=== PATIENT | female | born 1995 | race Hispanic/Latino ===

== ENCOUNTER 2017-06-18 08:46 | Observation (INO) | payer MEDICAID ==
[~2017-06-18] VITALS: Ht 167.6 cm; Wt 117.0 kg
[2017-06-18 09:11] VITALS: BP 120/75
[2017-06-18] MEDS: DEXAMETHASONE SOD PHOSPHATE 4 MG/ML 1ML VIAL IM SCH ×3 (09:42→20:47)
[2017-06-18] MEDS ORDERED: SERT50TA12 PO (09:46)
[2017-06-18] MEDS ORDERED: PNV1COMB11 PO (09:46)
[2017-06-18] MEDS ORDERED: ACET-2743 PO (09:46)
[2017-06-18 11:47] VITALS: BP 120/70
[2017-06-18] MEDS ORDERED: ACETAMINOPHEN 325 MG TAB PO PRN (15:45)
[2017-06-18 15:46] VITALS: BP 115/70
[2017-06-18 19:24] VITALS: BP 109/56
[2017-06-18 23:45] VITALS: BP 99/56
[2017-06-19 02:36] VITALS: BP 106/61
[2017-06-19] MEDS ORDERED: DEXAMETHASONE SOD PHOSPHATE 4 MG/ML 1ML VIAL ONE (03:04)
[2017-06-19] MEDS: DEXAMETHASONE SOD PHOSPHATE 4 MG/ML 1ML VIAL IM SCH (03:08)
[2017-06-19 07:48] VITALS: BP 116/66
== END 2017-06-19 09:50 | disposition home or self-care (01) ==
LOC: WSH 08:46
DX: O99.89 Other specified diseases and conditions complicating pregnancy, childbirth and the puerperium (principal); M54.9 Dorsalgia, unspecified; G89.29 Other chronic pain; Z3A.35 35 weeks gestation of pregnancy
CPT/HCPCS: 96372 ×2; G0378 ×26; J1100 ×4

== ENCOUNTER 2017-06-18 10:30 | Inpatient (IN) | payer MEDICAID ==
[~2017-06-18 10:30] MED LIST: ACET-2743 PO; PNV1COMB11 PO; SERT50TA12 PO
[2017-06-23] MEDS ORDERED: CALDOLOR 800MG+NS 250ML 250 ML IV PRN (07:30)
[2017-06-23] MEDS ORDERED: LACTATED RINGERS 1000ML 1,000 ML IV SCH (07:30)
[2017-06-23] MEDS ORDERED: CEFAZOLIN SODIUM 1 GM VIAL IVP PRN (07:30)
[2017-06-23 07:47] LABS: HEMATOCRIT 34.3 % (36-48); MEAN CORPUSCULAR HEMOGLOBIN 28.9 pg (27.0-33.0); MEAN CORPUSCULAR HGB CONC 34.5 g/dL (32.0-36.0); MEAN CORPUSCULAR VOLUME 83.7 fL (79-99); PLATELET COUNT (AUTO) 164 K/uL (130-400); RED CELL DISTRIBUTION WIDTH 13.5 % (11.0-15.5); WHITE BLOOD COUNT (AUTO) 8.9 K/uL (4.8-10.8)
[2017-06-23] MEDS ORDERED: OXYTOCIN 10 USP UNITS/ML ONE ×4 (09:27→21:25)
[2017-06-23] MEDS ORDERED: DURAMORPH PF1 MG/ML 10ML AMP IV ONE (11:34)
[2017-06-23] MEDS ORDERED: FENTANYL CITRATE PF 50 MCG/1 ML 2ML VIAL ONE (11:34)
[2017-06-23] MEDS ORDERED: CEFAZOLIN SODIUM 1 GM VIAL IVP ONE (11:45)
[2017-06-23] MEDS ORDERED: PHENYLEPHRINE HCL 10 MG/ML 1ML VIAL IV ONE (12:57)
[2017-06-23] MEDS ORDERED: ONDANSETRON HCL 4 MG/2 ML VIAL ONE (12:57)
[2017-06-23] MEDS ORDERED: OXYTOCIN-LR 20 UNITS/1000 ML 1,000 ML IV PRN (13:17)
[2017-06-23] MEDS ORDERED: DEXTROSE 5 %-0.45 % NACL 1,000 ML IV PRN (13:30)
[2017-06-23 14:45] VITALS: BP 113/71
[2017-06-23] MEDS ORDERED: EPHEDRINE SULFATE 50 MG/ML AMPULE IVP PRN (14:45)
[2017-06-23] MEDS ORDERED: PROMETHAZINE HCL 25 MG/ML 1ML AMPULE IM PRN (14:45)
[2017-06-23] MEDS ORDERED: ONDANSETRON HCL 4 MG/2 ML VIAL IVP PRN ×2 (14:45)
[2017-06-23] MEDS ORDERED: MORPHINE SULFATE 2 MG/ML 1ML SYG IVP PRN (14:45)
[2017-06-23] MEDS ORDERED: ONDANSETRON HCL 4 MG/2 ML 8 MG in SODIUM CHLORIDE 0.9% 50 ML IVP NR (14:45)
[2017-06-23] MEDS ORDERED: NALOXONE HCL 0.4 MG/1 ML ML IVP PRN ×2 (14:45)
[2017-06-23] MEDS ORDERED: DiphenhydrAMINE HCL 50 MG/ML VIAL IVP PRN (14:45)
[2017-06-23] MEDS ORDERED: HYDROCODONE/ACETAMINOPHEN 5/325 MG TAB PO PRN (14:45)
[2017-06-23] MEDS ORDERED: METOCLOPRAMIDE 10 MG/2 ML VIAL IVP PRN (14:45)
[2017-06-23] MEDS: HYDROCODONE/ACETAMINOPHEN 5/325 MG TAB PO PRN ×2 (15:45→21:11)
[2017-06-23 16:08] VITALS: BP 130/78
[2017-06-23 19:51] VITALS: BP 120/71
[2017-06-23] MEDS ORDERED: SODIUM CHLORIDE 0.9% 10 ML VIAL ONE (20:15)
[2017-06-23] MEDS ORDERED: CEFAZOLIN 2GM / 50 ML 50 ML IV SCH (20:30)
[2017-06-23] MEDS: CEFAZOLIN SODIUM 1 GM VIAL IVP SCH (20:59)
[2017-06-23] MEDS: SERTRALINE HCL 50 MG TABLET PO SCH (21:10)
[2017-06-23] MEDS: CALDOLOR 800MG+NS 250ML 250 ML IV SCH (21:32)
[2017-06-23 23:02] VITALS: BP 98/49
[2017-06-24 02:57] VITALS: BP 94/56
[2017-06-24] MEDS ORDERED: SODIUM CHLORIDE 0.9% 10 ML VIAL ONE (03:54)
[2017-06-24] MEDS: CEFAZOLIN SODIUM 1 GM VIAL IVP SCH (04:15)
[2017-06-24] MEDS: CALDOLOR 800MG+NS 250ML 250 ML IV SCH (05:24)
[2017-06-24 06:43] LABS: HEMATOCRIT 30.2 % (36-48); MEAN CORPUSCULAR HEMOGLOBIN 29.4 pg (27.0-33.0); MEAN CORPUSCULAR HGB CONC 34.4 g/dL (32.0-36.0); MEAN CORPUSCULAR VOLUME 85.3 fL (79-99); NUCLEATED RED BLOOD CELLS 0.1 % (0.0-0.19); PLATELET COUNT (AUTO) 124 K/uL (130-400); RED BLOOD CELL COUNT(AUTO) 3.54 MIL/uL (4.00-5.50); RED CELL DISTRIBUTION WIDTH 13.2 % (11.0-15.5); WHITE BLOOD COUNT (AUTO) 9.4 K/uL (4.8-10.8)
[2017-06-24 07:30] LABS: HEPATITIS Bs ANTIGEN SCREEN P Negative (Negative)
[2017-06-24 08:07] VITALS: BP 91/56
[2017-06-24] MEDS: SERTRALINE HCL 50 MG TABLET PO SCH ×2 (09:09→22:15)
[2017-06-24 12:07] VITALS: BP 109/70
[2017-06-24] MEDS: ACETAMINOPHEN-CODEINE 300/30MG TAB PO PRN ×2 (12:13→18:27)
[2017-06-24] MEDS: SIMETHICONE 80 MG TAB.CHEW PO PRN ×3 (13:23→21:34)
[2017-06-24] MEDS: IBUPROFEN 800 MG TAB PO SCH ×2 (13:25→21:36)
[2017-06-24] MEDS ORDERED: LANOLIN 30GM OINTMENT TP PRN (13:30)
[2017-06-24 15:44] VITALS: BP 91/54
[2017-06-24 19:55] VITALS: BP 101/51
[2017-06-24] MEDS: DOCUSATE SODIUM 100 MG CAP PO SCH (21:34)
[2017-06-24 23:13] VITALS: BP 115/57
[2017-06-25 02:52] VITALS: BP 101/58
[2017-06-25] MEDS: IBUPROFEN 800 MG TAB PO SCH (05:24)
[2017-06-25 08:02] VITALS: BP 104/52
[2017-06-25] MEDS: SIMETHICONE 80 MG TAB.CHEW PO PRN (09:18)
[2017-06-25] MEDS: SERTRALINE HCL 50 MG TABLET PO SCH (09:18)
[2017-06-25] MEDS: DOCUSATE SODIUM 100 MG CAP PO SCH (09:18)
== END 2017-06-25 10:35 | disposition home or self-care (01) | DRG 540 ==
LOC: LDH 06-23 07:02 → WSH 06-23 14:45
PROC: 10D00Z1 Extraction of Products of Conception, Low, Open Approach (ICD-10-PCS; principal; 2017-06-23 10:00)
DX: O69.81X0 Labor and delivery complicated by cord around neck, without compression, not applicable or unspecified (principal); G61.0 Guillain-Barre syndrome; Z37.0 Single live birth; Z3A.36 36 weeks gestation of pregnancy
CPT/HCPCS: 36415; 59510; 85027; 86592; 86850; 86900; 86901; 87340; A4218; A4344; A4606; J0690; J1741; J2274; J2370; J2405; J2590; J3010; J7120

== ENCOUNTER 2017-08-03 07:36 | Emergency (ER) | payer MEDICAID ==
[2017-08-03] MEDS ORDERED: LIDOCAINE HCL 2% VISCOUS 15 ML UDCUP ONE (07:55)
[2017-08-03] MEDS ORDERED: KETOROLAC TROMETHAMINE 30MG/ML ONE (07:56)
[2017-08-03] MEDS ORDERED: SODIUM CHLORIDE 0.9% 500ML 500 ML IV ONE (07:56)
[2017-08-03] MEDS ORDERED: PROCHLORPERAZINE EDISYLATE 10 MG/2 ML VIAL ONE (07:56)
[2017-08-03] MEDS ORDERED: MAG HYDROX/AL HYDROX/SIMETH ES 30 ML SUSP UDCUP ONE (07:56)
[2017-08-03 08:08] LABS: BASOPHILS % (AUTO) 0.4 % (0.0-5.0); EOSINOPHILS % (AUTO) 2.1 % (0.0-8.0); HEMATOCRIT 35.6 % (36-48); LYMPHOCYTES % (AUTO) 36.9 % (21.0-51.0); MEAN CORPUSCULAR HEMOGLOBIN 28.7 pg (27.0-33.0); MEAN CORPUSCULAR HGB CONC 34.3 g/dL (32.0-36.0); MEAN CORPUSCULAR VOLUME 83.7 fL (80-100); MONOCYTES % (AUTO) 8.2 % (3.0-13.0); NEUTROPHILS % (AUTO) 52.4 % (40.0-77.0); PLATELET COUNT (AUTO) 187 K/uL (130-400); RED BLOOD CELL COUNT(AUTO) 4.25 MIL/uL (4.00-5.50); RED CELL DISTRIBUTION WIDTH 13.3 % (11.0-15.5); WHITE BLOOD COUNT (AUTO) 9.2 K/uL (4.8-10.8)
[2017-08-03 08:19] LABS: CREATININE 0.8 mg/dL (0.5-1.5); POTASSIUM 3.8 mmol/L (3.5-5.1)
[2017-08-03 08:27] LABS: ALBUMIN 3.4 g/dL (3.5-5.0); BILIRUBIN,DIRECT 0.1 mg/dL (0.0-0.3); BILIRUBIN,TOTAL 0.3 mg/dL (0.2-1.0); TOTAL PROTEIN, SERUM 6.6 g/dL (6.0-8.3)
[2017-08-03 08:34] LABS: INR 0.97 (0.85-1.15); PARTIAL THROMBOPLASTIN TIME 26.8 SEC (26.3-35.5); PROTHROMBIN TIME 10.2 SEC (9.6-11.6)
[2017-08-03 08:41] LABS: B-TYPE NATRIURETIC PEPTIDE < 5 pg/mL (0-100)
[2017-08-03 09:59] LABS: APPEARANCE,URINE Clear (CLEAR); BILIRUBIN,URINE Negative (NEGATIVE); COLOR,URINE Yellow (YELLOW); GLUCOSE, URINE (UA) Negative (NEGATIVE); KETONES,URINE Negative (NEGATIVE); LEUKOCYTE ESTERASE ,URINE Trace (NEGATIVE); NITRATE,URINE Negative (NEGATIVE); OCCULT BLOOD,URINE Moderate (NEGATIVE); PROTEIN,URINE Negative (NEGATIVE); UROBILINOGEN,URINE 0.2 mg/dL (0.2-1.0)
[2017-08-03 10:01] LABS: AMPHET/METH SCREEN,URINE NEGATIVE (NEGATIVE); BARBITURATE SCREEN, URINE NEGATIVE (NEGATIVE); BENZODIAZEPINES SCREEN,URINE NEGATIVE (NEGATIVE); CANNABINOID SCREEN,URINE NEGATIVE (NEGATIVE); COCAINE SCREEN,URINE NEGATIVE (NEGATIVE); OPIATE SCREEN,URINE NEGATIVE (NEGATIVE); PHENCYCLIDINE SCREEN,URINE NEGATIVE (NEGATIVE)
[2017-08-03 10:15] LABS: BACTERIA,URINE None Seen /HPF (None Seen); MUCUS,URINE Moderate LPF (None Seen); WBC,URINE 0-1 /HPF (0-1)
== END 2017-08-03 11:55 | disposition home or self-care (01) ==
LOC: EDH 07:36
DX: K80.50 Calculus of bile duct without cholangitis or cholecystitis without obstruction (principal); R10.13 Epigastric pain; J45.909 Unspecified asthma, uncomplicated; K21.9 Gastro-esophageal reflux disease without esophagitis; Z91.040 Latex allergy status; Z98.890 Other specified postprocedural states
CPT/HCPCS: 36415; 74021; 76705; 80048; 80076; 80305; 81001; 82550; 83690; 83880; 84484; 84703; 85025; 85378; 85610; 85730; 93005; 96361; 96374; 96375; 99285; J0780; J1885; J7040

== ENCOUNTER 2017-09-01 10:23 | Inpatient (IN) | payer MEDICAID, OTHER ==
[~2017-09-01] VITALS: Ht 167.6 cm; Wt 112.3 kg
[2017-09-01 10:50] LABS: BASOPHILS % (AUTO) 0.4 % (0.0-5.0); EOSINOPHILS % (AUTO) 1.6 % (0.0-8.0); HEMATOCRIT 37.4 % (36-48); MEAN CORPUSCULAR HEMOGLOBIN 28.3 pg (27.0-33.0); MEAN CORPUSCULAR HGB CONC 34.1 g/dL (32.0-36.0); MEAN CORPUSCULAR VOLUME 83.1 fL (79-99); MONOCYTES % (AUTO) 7.5 % (3.0-13.0); NEUTROPHILS % (AUTO) 57.5 % (40.0-77.0); PLATELET COUNT (AUTO) 231 K/uL (130-400); RED BLOOD CELL COUNT(AUTO) 4.51 MIL/uL (4.00-5.50); RED CELL DISTRIBUTION WIDTH 13.6 % (11.0-15.5); WHITE BLOOD COUNT (AUTO) 10.4 K/uL (4.8-10.8)
[2017-09-01 10:52] LABS: APPEARANCE,URINE Clear (CLEAR); BILIRUBIN,URINE Negative (NEGATIVE); COLOR,URINE Yellow (YELLOW); GLUCOSE, URINE (UA) Negative (NEGATIVE); KETONES,URINE Negative (NEGATIVE); LEUKOCYTE ESTERASE ,URINE Trace (NEGATIVE); NITRATE,URINE Negative (NEGATIVE); OCCULT BLOOD,URINE Small (NEGATIVE); PH,URINE 5.5 (5.0-8.0); PROTEIN,URINE Negative (NEGATIVE); UROBILINOGEN,URINE 0.2 mg/dL (0.2-1.0)
[2017-09-01 11:01] LABS: CREATININE 0.7 mg/dL (0.5-1.5)
[2017-09-01 11:06] LABS: ALBUMIN 3.7 g/dL (3.5-5.0); BILIRUBIN,TOTAL 0.5 mg/dL (0.2-1.0); TOTAL PROTEIN, SERUM 7.2 g/dL (6.0-8.3)
[2017-09-01] MEDS ORDERED: ONDANSETRON ODT 4 MG TAB ONE (11:14)
[2017-09-01 11:26] LABS: BACTERIA,URINE Rare /HPF (None Seen); RBC,URINE 0-1 /HPF (0-1)
[2017-09-01 11:27] LABS: SQUAMOUS EPITHELIAL CELL,UR Rare /LPF (0-2)
[2017-09-01] MEDS ORDERED: KETOROLAC TROMETHAMINE 30MG/ML ONE (11:41)
[2017-09-01 16:11] VITALS: BP 111/70
[2017-09-01] MEDS ORDERED: ONDANSETRON HCL 4 MG/2 ML VIAL IVP PRN (16:15)
[2017-09-01] MEDS ORDERED: ZOSYN 3.375GM+NS 50ML 50 ML IV SCH (17:00)
[2017-09-01] MEDS: LACTATED RINGERS 1000ML 1,000 ML IV SCH (17:58)
[2017-09-01] MEDS: MEROPENEM 1 GM VIAL IVP SCH (17:58)
[2017-09-01 19:31] VITALS: BP 104/63
[2017-09-01 23:13] VITALS: BP 95/62
[2017-09-02] MEDS: LACTATED RINGERS 1000ML 1,000 ML IV SCH ×3 (03:31→23:45)
[2017-09-02 03:34] VITALS: BP 106/62
[2017-09-02] MEDS: MEROPENEM 1 GM VIAL IVP SCH ×3 (05:19→18:44)
[2017-09-02 05:22] LABS: HEMATOCRIT 35.9 % (36-48); MEAN CORPUSCULAR HEMOGLOBIN 29.6 pg (27.0-33.0); MEAN CORPUSCULAR HGB CONC 35.4 g/dL (32.0-36.0); MEAN CORPUSCULAR VOLUME 83.8 fL (79-99); NUCLEATED RED BLOOD CELLS 0.1 % (0.0-0.19); PLATELET COUNT (AUTO) 204 K/uL (130-400); RED BLOOD CELL COUNT(AUTO) 4.28 MIL/uL (4.00-5.50); RED CELL DISTRIBUTION WIDTH 13.7 % (11.0-15.5); WHITE BLOOD COUNT (AUTO) 8.1 K/uL (4.8-10.8)
[2017-09-02 05:45] LABS: ALBUMIN 3.2 g/dL (3.5-5.0); BILIRUBIN,TOTAL 0.8 mg/dL (0.2-1.0); CREATININE 0.7 mg/dL (0.5-1.5); POTASSIUM 3.9 mmol/L (3.5-5.1); TOTAL PROTEIN, SERUM 6.2 g/dL (6.0-8.3)
[2017-09-02] MEDS ORDERED: HYDROCODONE/ACETAMINOPHEN 5/325 MG TAB PO PRN (06:00)
[2017-09-02 07:25] VITALS: BP 100/55
[2017-09-02 11:37] VITALS: BP 101/58
[2017-09-02 11:49] LABS: BASOPHILS % (AUTO) 0.3 % (0.0-5.0); EOSINOPHILS % (AUTO) 1.8 % (0.0-8.0); LYMPHOCYTES % (AUTO) 33.8 % (21.0-51.0); MEAN CORPUSCULAR HEMOGLOBIN 29.4 pg (27.0-33.0); MEAN CORPUSCULAR HGB CONC 35.1 g/dL (32.0-36.0); MEAN CORPUSCULAR VOLUME 83.7 fL (79-99); MONOCYTES % (AUTO) 7.5 % (3.0-13.0); NEUTROPHILS % (AUTO) 56.6 % (40.0-77.0); PLATELET COUNT (AUTO) 199 K/uL (130-400); RED BLOOD CELL COUNT(AUTO) 4.17 MIL/uL (4.00-5.50); RED CELL DISTRIBUTION WIDTH 13.7 % (11.0-15.5); WHITE BLOOD COUNT (AUTO) 7.4 K/uL (4.8-10.8)
[2017-09-02 15:27] VITALS: BP 101/65
[2017-09-02] MEDS ORDERED: ENOXAPARIN SODIUM 40 MG/0.4 ML SYRINGE SQ SCH (16:00)
[2017-09-02 19:50] VITALS: BP 106/61
[2017-09-02 23:34] VITALS: BP 103/61
[2017-09-03] VITALS (22 sets, daily range): BP systolic 97–120; BP diastolic 55–68
[2017-09-03] MEDS: MORPHINE SULFATE 2 MG/ML 1ML SYG IVP PRN ×2 (00:24→09:57)
[2017-09-03] MEDS: MEROPENEM 1 GM VIAL IVP SCH ×3 (03:01→19:12)
[2017-09-03 05:21] LABS: HEMATOCRIT 37.4 % (36-48); MEAN CORPUSCULAR HEMOGLOBIN 28.5 pg (27.0-33.0); MEAN CORPUSCULAR VOLUME 83.8 fL (79-99); PLATELET COUNT (AUTO) 222 K/uL (130-400); RED BLOOD CELL COUNT(AUTO) 4.46 MIL/uL (4.00-5.50); RED CELL DISTRIBUTION WIDTH 13.8 % (11.0-15.5); WHITE BLOOD COUNT (AUTO) 6.8 K/uL (4.8-10.8)
[2017-09-03 05:30] LABS: ALBUMIN 3.3 g/dL (3.5-5.0); BILIRUBIN,TOTAL 0.8 mg/dL (0.2-1.0); CREATININE 0.7 mg/dL (0.5-1.5); POTASSIUM 3.5 mmol/L (3.5-5.1); TOTAL PROTEIN, SERUM 6.7 g/dL (6.0-8.3)
[2017-09-03] MEDS ORDERED: PROPOFOL 10 MG/ML 20ML VIAL IV ONE (08:00)
[2017-09-03] MEDS ORDERED: MIDAZOLAM HCL 1 MG/ML 2ML VIAL ONE (08:01)
[2017-09-03] MEDS ORDERED: ISOVUE-M 200 20 ML VIAL IT ONE (08:01)
[2017-09-03] MEDS ORDERED: ISOVUE-370 50ML VIAL IV ONE (08:01)
[2017-09-03] MEDS ORDERED: FENTANYL CITRATE PF 50 MCG/1 ML 2ML VIAL ONE ×3 (08:01→09:11)
[2017-09-03] MEDS ORDERED: BUPIVACAINE/PF 0.5% 30ML VIAL ONE (08:04)
[2017-09-03] MEDS ORDERED: GLYCOPYRROLATE 0.2 MG/ML 5 ML VIAL ONE (08:17)
[2017-09-03] MEDS ORDERED: ONDANSETRON HCL 4 MG/2 ML VIAL ONE (08:17)
[2017-09-03] MEDS ORDERED: DEXAMETHASONE SOD PHOSPHATE 10MG/ML 1ML VIAL ONE (08:17)
[2017-09-03] MEDS ORDERED: DiphenhydrAMINE HCL 50 MG/ML VIAL ONE (08:17)
[2017-09-03] MEDS ORDERED: LIDOCAINE PF 2% 5ML ABBOJECT ONE (08:18)
[2017-09-03] MEDS ORDERED: EPHEDRINE SULFATE 50 MG/ML AMPULE ONE (08:22)
[2017-09-03] MEDS ORDERED: SODIUM CHLORIDE 0.9% 10 ML VIAL ONE (09:21)
[2017-09-03] MEDS ORDERED: MEPERIDINE-PF 25 MG/ML SYG ONE (09:34)
[2017-09-03] MEDS ORDERED: KETOROLAC TROMETHAMINE 30MG/ML ONE (09:34)
[2017-09-03] MEDS: ENOXAPARIN SODIUM 40 MG/0.4 ML SYRINGE SQ SCH (10:52)
[2017-09-03] MEDS: ACETAMINOPHEN-CODEINE 300/30MG TAB PO PRN ×2 (11:13→23:53)
[2017-09-03] MEDS ORDERED: ACETAMINOPHEN-CODEINE 300/30MG TAB PO PRN (11:15)
[2017-09-03] MEDS: LACTATED RINGERS 1000ML 1,000 ML IV SCH (14:23)
[2017-09-04] MEDS: LACTATED RINGERS 1000ML 1,000 ML IV SCH (00:25)
[2017-09-04] MEDS: MORPHINE SULFATE 2 MG/ML 1ML SYG IVP PRN (01:48)
[2017-09-04] MEDS: MEROPENEM 1 GM VIAL IVP SCH ×2 (02:34→12:18)
[2017-09-04 03:32] VITALS: BP 103/66
[2017-09-04 05:47] LABS: HEMATOCRIT 32.3 % (36-48); MEAN CORPUSCULAR HEMOGLOBIN 29.2 pg (27.0-33.0); MEAN CORPUSCULAR HGB CONC 34.8 g/dL (32.0-36.0); MEAN CORPUSCULAR VOLUME 83.9 fL (79-99); PLATELET COUNT (AUTO) 201 K/uL (130-400); RED BLOOD CELL COUNT(AUTO) 3.85 MIL/uL (4.00-5.50); RED CELL DISTRIBUTION WIDTH 13.4 % (11.0-15.5); WHITE BLOOD COUNT (AUTO) 9.4 K/uL (4.8-10.8)
[2017-09-04 06:07] LABS: BILIRUBIN,TOTAL 0.6 mg/dL (0.2-1.0); CREATININE 0.7 mg/dL (0.5-1.5); POTASSIUM 3.2 mmol/L (3.5-5.1); TOTAL PROTEIN, SERUM 6.1 g/dL (6.0-8.3)
[2017-09-04 07:28] VITALS: BP 111/68
[2017-09-04] MEDS: ENOXAPARIN SODIUM 40 MG/0.4 ML SYRINGE SQ SCH (08:37)
[2017-09-04 11:21] VITALS: BP 102/62
== END 2017-09-04 13:05 | disposition home or self-care (01) | DRG 263 ==
LOC: EDH 10:23 → EDHIP 10:24 → WSH 16:10
PROVIDERS: ADMIT Surgery; ATTEND Surgery
PROC: BF111ZZ Fluoroscopy of Biliary and Pancreatic Ducts using Low Osmolar Contrast (ICD-10-PCS; 2017-09-03)
PROC: 0FT44ZZ Resection of Gallbladder, Percutaneous Endoscopic Approach (ICD-10-PCS; principal; 2017-09-03 07:56)
DX: K85.10 Biliary acute pancreatitis without necrosis or infection (principal); K80.00 Calculus of gallbladder with acute cholecystitis without obstruction; K76.0 Fatty (change of) liver, not elsewhere classified
CPT/HCPCS: 36415; 74300; 76705; 80053; 81001; 81025; 82150; 83690; 85025; 85027; 88304; A4218; J1100; J1200; J1650; J1885; J2001; J2175; J2185; J2250; J2405; J2704; J3010; J3490; J7030; J7120; Q9966; Q9967

== ENCOUNTER 2021-08-26 00:30 | Emergency (ER) | payer MEDICAID ==
[~2021-08-26] VITALS: Ht 167.6 cm; Wt 126.1 kg
[~2021-08-26 00:30] MED LIST changes: +SERT-439 PO; -SERT50TA12 PO
[2021-08-26] MEDS ORDERED: NEO/5DRO4 OP (01:12)
[2021-08-26 01:45] VITALS: BP 112/72
== END 2021-08-26 01:46 | disposition home or self-care (01) ==
LOC: EDH 00:30
DX: H53.141 Visual discomfort, right eye (principal); Z77.21 Contact with and (suspected) exposure to potentially hazardous body fluids; Z90.49 Acquired absence of other specified parts of digestive tract; Z91.041 Radiographic dye allergy status
CPT/HCPCS: 99282

== ENCOUNTER 2021-10-07 04:39 | Emergency (ER) | payer MEDICAID, OTHER ==
[~2021-10-07] VITALS: Ht 167.6 cm; Wt 122.0 kg
[~2021-10-07 04:39] MED LIST changes: +NEO/5DRO4 OP
[2021-10-07 04:41] VITALS: BP 109/74
[2021-10-07] MEDS ORDERED: IBUPROFEN 600 MG TABLET PO ONE (06:30)
== END 2021-10-07 06:35 | disposition home or self-care (01) ==
LOC: EDH 04:39
DX: S66.911A Strain of unspecified muscle, fascia and tendon at wrist and hand level, right hand, initial encounter (principal); X58.XXXA Exposure to other specified factors, initial encounter; Y93.89 Activity, other specified; Y92.89 Other specified places as the place of occurrence of the external cause; Y99.8 Other external cause status
CPT/HCPCS: 29125; 73130

== ENCOUNTER 2022-06-22 17:51 | Emergency (ER) | payer MEDICAID, OTHER ==
[~2022-06-22] VITALS: Ht 167.6 cm; Wt 117.9 kg
[2022-06-22] MEDS ORDERED: LACTATED RINGERS 1000ML 1,000 ML IV ONE (18:00)
[2022-06-22 18:17] LABS: BASOPHILS % (AUTO) 0.4 % (0.0-5.0); LYMPHOCYTES % (AUTO) 36.1 % (21.0-51.0); MEAN CORPUSCULAR HEMOGLOBIN 29.2 pg (27.0-33.0); MEAN CORPUSCULAR HGB CONC 33.1 g/dL (32.0-36.0); MEAN CORPUSCULAR VOLUME 88.2 fL (79-99); MONOCYTES % (AUTO) 11.6 % (3.0-13.0); NEUTROPHILS % (AUTO) 50.3 % (40.0-77.0); PLATELET COUNT (AUTO) 253 K/uL (130-400); RED BLOOD CELL COUNT(AUTO) 4.76 MIL/uL (4.00-5.50); RED CELL DISTRIBUTION WIDTH 11.9 % (11.0-15.5)
[2022-06-22 18:27] LABS: APPEARANCE,URINE TURBID (CLEAR); BILIRUBIN,URINE 0.5 mg/dL (NEGATIVE); COLOR,URINE DARK-YELLOW (YELLOW); GLUCOSE, URINE (UA) NEGATIVE (NEGATIVE); KETONES,URINE NEGATIVE (NEGATIVE); LEUKOCYTE ESTERASE ,URINE NEGATIVE Leu/uL (NEGATIVE); NITRATE,URINE NEGATIVE (NEGATIVE); OCCULT BLOOD,URINE MODERATE (NEGATIVE); PROTEIN,URINE 70 mg/dL (NEGATIVE); UROBILINOGEN,URINE >=8.0 mg/dL (0.2-1.0)
[2022-06-22 18:28] LABS: CREATININE 0.8 mg/dL (0.5-1.5); POTASSIUM 3.7 mmol/L (3.5-5.1)
[2022-06-22 18:32] LABS: ALBUMIN 3.5 g/dL (3.5-5.0); TOTAL PROTEIN, SERUM 6.9 g/dL (6.0-8.3)
[2022-06-22 18:35] LABS: BACTERIA,URINE FEW /HPF (None Seen); CALCIUM OXALATE CRYSTALS,UR FEW /LPF (None Seen); MUCUS,URINE MOD LPF (None Seen); SQUAMOUS EPITHELIAL CELL,UR MANY /HPF (0-2)
[2022-06-22 18:49] LABS: HCG,QUALITATIVE URINE NEGATIVE (NEGATIVE)
[2022-06-22 19:30] VITALS: BP 115/56
[2022-06-22 20:15] LABS: INR 0.98 (0.85-1.15); PROTHROMBIN TIME 10.7 SEC (9.6-11.6)
[2022-06-22 20:16] LABS: PARTIAL THROMBOPLASTIN TIME 25.1 SEC (26.3-35.5)
[2022-06-22 20:19] LABS: ACETAMINOPHEN 4 mcg/mL (10-30)
[2022-06-22 20:25] LABS: ALCOHOL, BLOOD < 3 mg/dL (0-10); SALICYLATE < 2.8 mg/dL (2.8-20.0)
[2022-06-22] MEDS ORDERED: ONDANSETRON 4MG INJ ONE (20:28)
[2022-06-22] MEDS ORDERED: SOLU-MEDROL 125MG VIAL IVP ONE (20:30)
[2022-06-22] MEDS ORDERED: MORPHINE 2 MG SYG IVP ONE (20:30)
[2022-06-22] MEDS ORDERED: DiphenhydrAMINE HCL 50 MG/ML VIAL IV ONE (20:30)
[2022-06-22] MEDS ORDERED: IOHEXOL 350 MG/ML 100ML INFUS..BTL IV ONE (20:40)
[2022-06-22] MEDS ORDERED: CEFU500T67 PO (22:16)
[2022-06-22] MEDS ORDERED: DIPH1TAB PO (22:17)
[2022-06-22] MEDS ORDERED: ONDA-104 PO (22:17)
[2022-06-22] MEDS ORDERED: CEFTRIAXONE 1G VIAL IVP ONE (22:30)
[2022-06-23 12:13] LABS: HEPATITIS A IGM ANTIBODY Non-Reactive (Nonreactive); HEPATITIS B CORE IGM ANTIBODY Non-Reactive (Negative); HEPATITIS B SURFACE ANTIGEN Non-Reactive (Nonreactive); HEPATITIS C ANTIBODY Non-Reactive (Nonreactive)
== END 2022-06-22 22:54 | disposition left against medical advice (07) ==
LOC: EDH 17:51
DX: N39.0 Urinary tract infection, site not specified (principal); K76.0 Fatty (change of) liver, not elsewhere classified; K75.9 Inflammatory liver disease, unspecified; J45.909 Unspecified asthma, uncomplicated; Z79.52 Long term (current) use of systemic steroids; Z90.49 Acquired absence of other specified parts of digestive tract; Z79.899 Other long term (current) drug therapy
CPT/HCPCS: 99285; 74177; 96374; 96375 ×2; 96361; 80053; 83690; 85025; 85610; 85730; 87088; 80074; 81025; 36415; 81001; G0481; J7120; J1200; J2930; J0696; J2405; Q9967

== ENCOUNTER 2025-01-17 22:09 | Emergency (ER) | payer MEDICAID, OTHER ==
[~2025-01-17] VITALS: Ht 167.6 cm; Wt 83.5 kg
[~2025-01-17 22:09] MED LIST changes: +CEFU500T67 PO; +DIPH1TAB PO; +ONDA-104 PO
[2025-01-17] MEDS ORDERED: ASPIRIN 325MG TAB PO ONE (22:30)
[2025-01-17] MEDS ORDERED: 0.9%NACL 1000ML 1,000 ML IV ONE (22:30)
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
[2025-01-18 00:24] VITALS: BP 117/73; PULSE 69; RESP 15; TEMP 98.5; O2SAT 99
== END 2025-01-18 00:33 | disposition home or self-care (01) ==
LOC: EDH 22:09
DX: S51.831A Puncture wound without foreign body of right forearm, initial encounter (principal); Z88.0 Allergy status to penicillin; Z90.49 Acquired absence of other specified parts of digestive tract; Z90.89 Acquired absence of other organs; Z91.041 Radiographic dye allergy status; W50.3XXA Accidental bite by another person, initial encounter; Y93.89 Activity, other specified; Y92.89 Other specified places as the place of occurrence of the external cause; Y99.8 Other external cause status
CPT/HCPCS: 90471; 90714; 99283; 99285

== ENCOUNTER 2025-03-26 11:41 | Emergency (ER) | payer OTHER ==
[~2025-03-26] VITALS: Ht 167.6 cm; Wt 83.9 kg
[2025-03-26 11:48] VITALS: BP 105/64; PULSE 57; RESP 16; TEMP 98.4; O2SAT 98
--- NOTE | 2025-03-26 11:55 | ERN ---
ED Note History of Present Illness Stated Complaint: LEFT KNEE PAIN Chief Complaint: Knee Injury/Swelling Time Seen by MD: 11:48 Dictation: PATIENT IS A 29-YEAR-OLD FEMALE COMING IN WITH KNOWN LEFT MEDIAL KNEE MENISCAL TEAR SHE HAS HAD FOR A YEAR. SHE STATES IT IS TOO EARLY TO HAVE SURGERY AND NOT SEVERE ENOUGH BY HER ORTHOPEDIC SURGEON. HOWEVER SHE IS REQUESTING A INTRA- ARTICULAR INJECTION. BRACES IN PLACE DISTAL NEUROVASCULAR CMS INTACT. NO FEVER NO CHILLS. Allergies: Coded Allergies: amoxicillin (Unverified Allergy, Mild, HIVES, 01/17/25) clavulanic acid (Unverified Allergy, Mild, HIVES, 01/17/25) Iodinated Contrast Media (Unverified Allergy, Unknown, 06/18/17) No Allergy Information Available (Verified Allergy, Unknown, 10/05/15) Uncoded Allergies: POWERED GLOVES (Allergy, Intermediate, RASH, 10/05/15) Home Meds Active Scripts Ondansetron HCl (Ondansetron HCl) 4 Mg Tablet, 4 MG PO TIDP PRN for VOMITING, #20 TAB Prov:KATHIE ZULUAGA MD 06/22/22 Diphenoxylate HCl/Atropine (Lomotil Tablet) 1 Each Tablet, 2 TAB PO Q6HPRN PRN for DIARRHEA for 5 Days, #10 TAB 0 Refills Prov:KATHIE ZULUAGA MD 06/22/22 Cefuroxime Axetil (Cefuroxime) 500 Mg Tablet, 500 MG PO BID, #20 TAB Prov:KATHIE ZULUAGA MD 06/22/22 Prashanth/Polymyx B Sulf/Dexameth (Maxitrol Eye Drops) 5 Ml Drops.susp, 5 ML OP BID for 7 Days, #30 DROP Prov:ZAKIA TEJADA MD 08/26/21 Reported Medications Acetaminophen (Tylenol Extra Strength) 500 Mg Tablet, 500 MG PO HSPRN PRN for PAIN LEVEL 6 TO 10, TAB 06/18/17 Vits #33/Iron/FA/Dha (Select-Ob + Dha Pack) 1 Each Combo..pkg, 1 EACH PO DAILY, COMB.PKG 06/18/17 Sertraline HCl (Sertraline HCl) 50 Mg Tablet, 50 MG PO BID, TAB 06/18/17 Past Medical History Past Medical History: Asthma, Other Additional Past Medical Hx: POTS Surgical History: Tonsillectomy, Cholecystectomy, Surgical History Other: BACK SX Social History: Lives with family LMP: Mar 17, 2025 : 1 Para: 1 Aborts: 0 RN Note Reviewed/Agreed w/PFSH: Yes Review of System Dictation CONSTITUTIONAL: NEGATIVE EXCEPT FOR HPI HEAD/FACE: NEGATIVE EXCEPT FOR HPI EENT: NEGATIVE EXCEPT FOR HPI RESPIRATORY: NEGATIVE EXCEPT FOR HPI GASTROINTESTINAL/ABDOMINAL: NEGATIVE EXCEPT FOR HPI GENITOURINARY: NEGATIVE EXCEPT FOR HPI MUSCULOSKELETAL: NEGATIVE EXCEPT FOR HPI LEFT MEDIAL KNEE PAIN WITH CREPITATION INTEGUMENTARY: NEGATIVE EXCEPT FOR HPI NEUROLOGICAL/PSYCH: NEGATIVE EXCEPT FOR HPI HEMATOLOGIC/LYMPHATIC: NEGATIVE EXCEPT FOR HPI ALL SYSTEMS NEGATIVE, EXCEPT NOTED ABOVE. 13 POINT REVIEW OF SYSTEMS ASSESSED AND ALL NEGATIVE EXCEPT FOR ABOVE. Initial Vital Sign VS Vital Signs Date Time Temp Pulse Resp B/P (MAP) Pulse Ox O2 Delivery O2 Flow Rate FiO2 03/26/25 11:43 98.4 57 16 105/64 98 Room Air 0 03/26/25 11:48 21 Physical Exam Dictation VITAL SIGNS REVIEWED GENERAL APPEARANCE: ALERT, ORIENTED X 3, MODERATE ACUTE DISTRESS, WELL DEVELOPED, NOURISHED. HEAD AND FACE: NON-TRAUMATIC. EYES: PERRL, PINK CONJUNCTIVAS, EYELID NO TRAUMA, ANTERIOR CHAMBER WITH ARCUS SENILIS. EARS: PINNAS INTACT AND NO SIGNS OF TRAUMA OR ERYTHEMA EAR CANALS CLEAR AND NO DISCHARGE TM NO ERYTHEMA NOSE: NO DISCHARGE, NO BLEEDING. OROPHARYNX: MOUTH NORMAL, TONGUE PINK, PHARYNX CLEAR,NO ERYTHEMA, TONSILS NO EXUDATES, NO ABSCESSES NOTED, MUCOUS MEMBRANE MOIST NECK: SUPPLE, NON-TENDER, NO THYROMEGALY, NO MASSES, NO JVD, NO BRUITS BREAST:DEFERRED CHEST:NO TENDERNESS, NO CREPITUS, NO PARADOXICAL MOVEMENT, NO RETRACTIONS LUNGS:CLEAR, WELL-VENTILATED, SYMMETRIC, NO RALES, NO WHEEZING, NO RHONCHI, NO STRIDOR, GOOD BREATH SOUNDS BILATERALLY HEART: REGULAR RATE, REGULAR RHYTHM, NO MURMUR, NO GALLOPS VASCULAR: NO PERIPHERAL EDEMA, ABDOMEN: SOFT, POSITIVE BOWEL SOUNDS, NONDISTENDED, NO GUARDING, NONTENDER, NO REBOUND, NO MASSES NO HEPATOMEGALY, NO SPLENOMEGALY, NO HICKEY'S SIGN, NO HERNIAS. RECTAL: DEFERRED GENITAL: DEFERRED NEUROLOGICAL: NORMAL SPEECH, MOTOR FUNCTION INTACT, SENSORY FUNCTION INTACT MUSCULOSKELETAL: NECK NONTENDER, FULL RANGE OF MOTION, BACK NONTENDER, FULL RANGE OF MOTION, EXTREMITIES: MILD SUPRAPATELLAR EFFUSION. TENDERNESS TO THE MEDIAL ASPECT OF LEFT KNEE. CREPITATION BRACE IN PLACE SKIN: COLOR PINK, DRY, NO TURGOR, NO RASH, NO LACERATIONS, NO ABRASIONS, NO CONTUSIONS. LYMPHATIC: DEFERRED Results (Laboratory/Radiology) Labs Reviewed?: Yes ED Course ED Course Orders Procedure Category Date Status Time Lidocaine Hcl 1% 20ml PHA 03/26/25 Complete Vial (Lidocaine Hc 11:49 Dexamethasone 4mg/Ml PHA 03/26/25 Complete 1ml Vial (Dexametha 11:49 Current Medications Medications (Trade) Dose Ordered Sig/Cynthia Route PRN Reason Start Time Stop Time Status Last Admin Dose Admin Dexamethasone Sodium Phosphate (dexaMETHasone 4MG/ML 1ML VIAL) 8 mg ONCE STAT IARTIC 03/26/25 11:49 03/26/25 11:54 DC 03/26/25 12:16 Lidocaine HCl (Lidocaine HCl 1% 20ml Vial) 5 ml ONCE STAT INJ 03/26/25 11:49 03/26/25 11:54 DC 03/26/25 12:15 Vital Signs Date Time Temp Pulse Resp B/P (MAP) Pulse Ox O2 Delivery O2 Flow Rate FiO2 03/26/25 11:48 98.4 57 16 105/64 98 Room Air* 0 21 03/26/25 11:43 98.4 57 16 105/64 98 Room Air 0 Medical Decision Making [facility] MEDICAL DISCHARGE MAKING BASED ON EMPIRIC TREATMENT AND AN INTRA-ARTICULAR INJECTION OF LEFT KNEE FOR CHRONIC MENISCAL PAIN TEAR. INTRA-ARTICULAR INJECTION WAS PERFORMED KNEE BRACE WAS REPLACED PATIENT DEMONSTRATED INCREASED RANGE OF MOTION WITH DECREASED PAIN ON DISCHARGE Procedure Procedure Dictation: 1235/PROCEDURE EXPLAINED TO PATIENT SHE AGREED TO PROCEED [place]MARKS LOCATED FOR LEFT MEDIAL KNEE INTRA-ARTICULAR INJECTION ASPIRATION PERFORMED INJECTED 8 MG DECADRON, 1 ML LIDOCAINE 1% PLAIN INTO KNEE SPACE. PATIENT TOLERATED WELL NO BLEEDING SITE WAS PREPPED ASEPTICALLY WITH BETADINE SWABS BEFORE INJECTION. DX & DISP Disposition: Discharge Departure Impression: Primary Impression: Chronic pain of left knee Additional Impression: Tear of medial meniscus of left knee Condition: Stable Scripts Acetaminophen with Codeine (Acetaminophen-Cod #3 Tablet) 300 Mg-30 Mg Tablet 1 TAB PO Q4H PRN for MODERATE TO SEVERE PAIN, #20 TAB 0 Refills Prov: MARINE ESCOBAR [employer] 03/26/25 Additional Instructions: Follow-up with primary care provider in 1 to 2 days. Take medications as directed here in the emergency room. Okay to continue home medications unless otherwise discussed during your visit in the emergency room today. Return to your nearest emergency room if symptoms worsen or if there is no improvement. Call 911 if you need immediate assistance. Take Tylenol or Motrin [id number] as needed and if no contraindications are present. Increase oral hydration. A wound culture or urine culture was ordered here in the emergency room department please follow-up with primary care provider and advise them to get repeat ports from our facility. If you had any Alexey wrap/splints that were applied here, please do not remove them until you see your primary care or specialty. Warm compresses to knee three to 4 times a day. Activity as tolerated and see your primary care doctor for follow up or follow up with the orthopedic surgeon. Referrals: NONE (PCP) MYRANDA MONTESINOS MD Time of Disposition: 12:42 I have reviewed the case, and I agree with, Diagnosis and Plan MARINE ESCOBAR NP Mar 26, 2025 11:55
[2025-03-26] MEDS: LIDOCAINE HCL 1% 20 ML VIAL INJ STA (12:15)
[2025-03-26] MEDS ORDERED: ACET-2079 PO (12:43)
== END 2025-03-26 12:53 | disposition home or self-care (01) ==
LOC: EDH 11:41
DX: S83.242A Other tear of medial meniscus, current injury, left knee, initial encounter (principal); G89.29 Other chronic pain; M25.562 Pain in left knee; J45.909 Unspecified asthma, uncomplicated; Z88.0 Allergy status to penicillin; Z90.49 Acquired absence of other specified parts of digestive tract; Z90.89 Acquired absence of other organs; Z91.041 Radiographic dye allergy status; X58.XXXA Exposure to other specified factors, initial encounter; Y93.89 Activity, other specified; Y92.89 Other specified places as the place of occurrence of the external cause; Y99.8 Other external cause status
CPT/HCPCS: 20610; 99283; J1100; J2003; 99284